=== PATIENT | female | born 1960 | race Caucasian/White ===

== ENCOUNTER → 2016-05-01 | Outpatient (CLI) | payer OTHER ==
[~2016-05-01] MED LIST: BUPR100T8 PO; IBUP-1050 PO; TRAM-10 PO
--- NOTE | 2016-05-01 10:19 | DIAGNOSTIC IMAGING REPORT ---
RIGHT FIFTH TOE 3 VIEWS HISTORY: PAIN IN R TOE Right COMPARISON: None. 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 There is soft tissue swelling. There is slight irregularity with subtle lucency at the fused DIP joint. This suggests a subacute/healing fracture. This is nondisplaced. No radiopaque foreign bodies. IMPRESSION: Subacute/healing fracture at the fused DIP joint of the right fifth toe. Electronically signed by: Vinayak Pizarro M.D. 05/01/2016 10:18 AM Dictated Date/Time: 05/01/2016 10:14 AM
== END | disposition home or self-care (01) ==
LOC: C.RADBC 09:06
PROVIDERS: ATTEND Family Medicine
DX: M79.674 Pain in right toe(s) (principal); S92.504A Nondisplaced unspecified fracture of right lesser toe(s), initial encounter for closed fracture; X58.XXXA Exposure to other specified factors, initial encounter